=== PATIENT | male | born 1955 | race Caucasian/White ===

== ENCOUNTER 2018-01-12 21:35 | Inpatient (IN) | payer OTHER ==
[~2018-01-12] VITALS: Ht 180.3 cm; Wt 97.5 kg
[2018-01-12 21:40] VITALS: BP_SYST 144
[2018-01-12] MEDS ORDERED: NACL 0.9% 1,000 ML IV ONE (22:32)
[2018-01-12 22:57] LABS: BASOPHILS # (AUTO) 0.1 K/uL (0.0-0.2); BASOPHILS % (AUTO) 0.6 % (0.0-2.0); EOSINOPHILS # (AUTO) 0.3 K/uL (0.0-0.4); EOSINOPHILS % (AUTO) 1.5 % (0.0-4.0); HEMATOCRIT 40.5 % (36-54); HEMOGLOBIN 13.6 g/dL (14.0-18.0); LYMPHOCYTES # (AUTO) 1.8 K/uL (1.0-5.5); LYMPHOCYTES % (AUTO) 10.2 % (20.5-51.5); MEAN CORPUSCULAR HEMOGLOBIN 29 pg (27-31); MEAN CORPUSCULAR HGB CONC 33 % (32-36); MEAN CORPUSCULAR VOLUME 86 fL (79.0-98.0); MONOCYTES % (AUTO) 5.4 % (1.7-9.3); NEUTROPHILS # (AUTO) 14.7 K/uL (1.8-7.7); NEUTROPHILS % (AUTO) 82.3 % (40.0-70.0); PLATELET COUNT (AUTO) 190 K/uL (130-430); RED CELL DISTRIBUTION WIDTH 12.9 % (9.0-15.0); WHITE BLOOD COUNT (AUTO) 17.9 K/uL (4.8-10.8)
[2018-01-12 23:10] LABS: CALCIUM 8.6 mg/dL (8.4-11.0); CREATININE 0.84 mg/dL (0.55-1.30); POTASSIUM 3.9 mmol/L (3.5-5.1)
[2018-01-12 23:15] LABS: ALBUMIN 3.4 g/dL (3.4-4.8); TOTAL BILIRUBIN 1.2 mg/dL (0.0-1.0)
[2018-01-12] MEDS ORDERED: ACETAMINOPHEN 325 MG TABLET ONE (23:52)
[2018-01-13] MEDS ORDERED: ACETAMINOPHEN 325 MG TABLET PO ONE
[2018-01-13 00:02] LABS: BILIRUBIN,URINE NEGATIVE (NEGATIVE); BLOOD, URINE NEGATIVE (NEGATIVE); CLARITY/URINE CLOUDY (CLEAR); COLOR,URINE YELLOW (YELLOW); GLUCOSE,URINE NEGATIVE (NEGATIVE); KETONES,URINE NEGATIVE (NEGATIVE); LEUKOCYTE ESTERASE ,URINE 3+ (NEGATIVE); NITRITE, URINE NEGATIVE (NEGATIVE); PROTEIN URINE NEGATIVE (NEGATIVE); UROBILINOGEN,URINE 0.2 (0.2-1.0)
[2018-01-13 00:09] LABS: BACTERIA,URINE MODERATE /HPF (None Seen); RBC,URINE 0-3 /HPF (0-3); URINE AMORPHOUS URATE 2+ /HPF (None Seen); WBC,URINE 20-50 /HPF (0-3)
[2018-01-13] MEDS ORDERED: LEVOFLOXACIN 500 MG/D5W 100 ML IV ONE (00:15)
[2018-01-13] MEDS ORDERED: NACL 0.9% 1,000 ML IV ONE (00:28)
[2018-01-13] MEDS ORDERED: DIPHENHYDRAMINE INJ 50 MG/ML VIAL IVP ONE ×2 (00:30→17:00)
[2018-01-13] MEDS ORDERED: METOCLOPRAMIDE HCL 10 MG/2 ML VIAL IVP ONE (00:30)
[2018-01-13 00:31] LABS: PROTHROMBIN TIME 10.2 SECS (9.5-12.5)
[2018-01-13] MEDS ORDERED: PIPERACILLIN/TAZO 3.375 GM in NS 50 ML IV ONE (00:45)
[2018-01-13] MEDS ORDERED: MORP30TA PO (00:46)
[2018-01-13] MEDS ORDERED: FAMO20TA8 PO (00:46)
[2018-01-13] MEDS ORDERED: METO25TA3 PO (00:46)
[2018-01-13] MEDS ORDERED: MORP15TA PO (00:46)
[2018-01-13] MEDS ORDERED: ASPI325T2 PO (00:46)
[2018-01-13] MEDS ORDERED: LISI-600 PO (00:46)
[2018-01-13] MEDS ORDERED: DICY10CA59 PO (00:46)
[2018-01-13] MEDS ORDERED: CLOP75TA2 PO (00:46)
[2018-01-13] MEDS ORDERED: PIPERACILLIN/TAZOBACTAM 3.375 GM/VIAL (ZOSYN) IV ONE ×2 (00:47→06:11)
[2018-01-13] MEDS ORDERED: OSELTAMIVIR PHOSPHATE 75 MG CAPSULE PO ONE (01:30)
[2018-01-13] MEDS ORDERED: METOCLOPRAMIDE HCL 10 MG/2 ML VIAL IVP PRN (02:00)
[2018-01-13 02:30] VITALS: BP_SYST 117
[2018-01-13] MEDS: NACL 0.9% 1,000 ML IV SCH ×3 (02:46→23:20)
[2018-01-13 04:00] VITALS: BP_SYST 110
[2018-01-13] MEDS: ACETAMINOPHEN 325 MG TABLET PO PRN ×3 (04:04→18:31)
[2018-01-13] MEDS: PIPERACILLIN/TAZO 3.375/DEX-IS 50 ML IV SCH ×4 (06:00→23:19)
[2018-01-13] MEDS: LISINOPRIL 20 MG TABLET PO SCH (09:00)
[2018-01-13] MEDS ORDERED: LISINOPRIL 20 MG TABLET PO SCH (09:00)
[2018-01-13] MEDS ORDERED: ASPIRIN 325 MG TABLET PO SCH ×2 (09:00)
[2018-01-13] MEDS: CLOPIDOGREL BISULFATE 75 MG TABLET PO SCH (09:59)
[2018-01-13] MEDS: FAMOTIDINE 20 MG TABLET PO SCH (09:59)
[2018-01-13] MEDS: METOPROLOL SUCCINATE 25 MG TAB.SR.24H (TOPROL XL) PO SCH (10:00)
[2018-01-13] MEDS: MORPHINE SULFATE 30 MG Immediate Release TABLET PO PRN ×2 (10:07→18:31)
[2018-01-13] MEDS ORDERED: ASPIRIN 81 MG TAB.CHEW PO ONE (10:15)
[2018-01-13 12:00] VITALS: BP_SYST 103
[2018-01-13 16:00] VITALS: BP_SYST 120
[2018-01-13] MEDS ORDERED: TAMSULOSIN HCL 0.4 MG CAP PO ONE (16:15)
[2018-01-13] MEDS ORDERED: GENTAMICIN 120 mg/100 mL NS 100 ML IV SCH (17:00)
[2018-01-13 20:00] VITALS: BP_SYST 98
[2018-01-13] MEDS: TAMSULOSIN HCL 0.4 MG CAP PO SCH (20:23)
[2018-01-13 23:38] VITALS: BP_SYST 112
[2018-01-14] MEDS: DIPHENHYDRAMINE INJ 50 MG/ML VIAL IVP SCH ×4 (00:34→17:34)
[2018-01-14] MEDS: PIPERACILLIN/TAZO 3.375/DEX-IS 50 ML IV SCH ×3 (05:07→17:34)
[2018-01-14] MEDS: NACL 0.9% 1,000 ML IV SCH ×3 (05:07→21:00)
[2018-01-14] MEDS: ACETAMINOPHEN 325 MG TABLET PO PRN ×2 (05:14→17:35)
[2018-01-14 06:58] LABS: BASOPHILS % (AUTO) 0.2 % (0.0-2.0); EOSINOPHILS # (AUTO) 0.1 K/uL (0.0-0.4); EOSINOPHILS % (AUTO) 0.9 % (0.0-4.0); HEMOGLOBIN 11.6 g/dL (14.0-18.0); LYMPHOCYTES # (AUTO) 1.2 K/uL (1.0-5.5); LYMPHOCYTES % (AUTO) 9.7 % (20.5-51.5); MEAN CORPUSCULAR HEMOGLOBIN 29 pg (27-31); MEAN CORPUSCULAR HGB CONC 33 % (32-36); MEAN CORPUSCULAR VOLUME 87 fL (79.0-98.0); MONOCYTES # (AUTO) 0.8 K/uL (0.0-1.0); MONOCYTES % (AUTO) 6.5 % (1.7-9.3); NEUTROPHILS # (AUTO) 9.9 K/uL (1.8-7.7); PLATELET COUNT (AUTO) 144 K/uL (130-430); RED BLOOD CELL COUNT(AUTO) 4.03 MIL/uL (4.2-6.2)
[2018-01-14 07:23] LABS: ALBUMIN 2.4 g/dL (3.4-4.8); CALCIUM 7.9 mg/dL (8.4-11.0); CREATININE 0.98 mg/dL (0.55-1.30); POTASSIUM 3.2 mmol/L (3.5-5.1)
[2018-01-14 08:00] VITALS: BP_SYST 94
[2018-01-14] MEDS: LISINOPRIL 20 MG TABLET PO SCH (08:56)
[2018-01-14] MEDS: METOPROLOL SUCCINATE 25 MG TAB.SR.24H (TOPROL XL) PO SCH (08:57)
[2018-01-14] MEDS ORDERED: TAMSULOSIN HCL 0.4 MG CAP PO SCH (09:00)
[2018-01-14] MEDS: TAMSULOSIN HCL 0.4 MG CAP PO SCH ×2 (09:03→20:51)
[2018-01-14] MEDS: FAMOTIDINE 20 MG TABLET PO SCH (09:03)
[2018-01-14] MEDS: ASPIRIN 81 MG TAB.CHEW PO SCH (09:03)
[2018-01-14] MEDS: CLOPIDOGREL BISULFATE 75 MG TABLET PO SCH (09:03)
[2018-01-14] MEDS ORDERED: POTASSIUM CHLORIDE 20 MEQ TAB.PRT.SR PO ONE (10:00)
[2018-01-14 10:17] LABS: NEUTROPHILS % (AUTO) 82.7 % (40.0-70.0)
[2018-01-14] MEDS: MORPHINE SULFATE 30 MG Immediate Release TABLET PO PRN (12:27)
[2018-01-14 13:04] VITALS: BP_SYST 122
[2018-01-14 16:18] VITALS: BP_SYST 116
[2018-01-14 20:00] VITALS: BP_SYST 137
[2018-01-14] MEDS: POTASSIUM CHLORIDE 20 MEQ TAB.PRT.SR PO SCH (20:52)
[2018-01-14] MEDS: TOPIRAMATE 25 MG TABLET(TOPAMAX) PO SCH (20:57)
[2018-01-14 23:30] VITALS: BP_SYST 130
[2018-01-15] MEDS: DIPHENHYDRAMINE INJ 50 MG/ML VIAL IVP SCH ×4 (00:47→17:41)
[2018-01-15] MEDS: PIPERACILLIN/TAZO 3.375/DEX-IS 50 ML IV SCH ×3 (00:47→11:19)
[2018-01-15] MEDS: NACL 0.9% 1,000 ML IV SCH ×4 (00:48→20:40)
[2018-01-15 08:00] VITALS: BP_SYST 132
[2018-01-15] MEDS: FAMOTIDINE 20 MG TABLET PO SCH (09:00)
[2018-01-15] MEDS: CLOPIDOGREL BISULFATE 75 MG TABLET PO SCH (09:00)
[2018-01-15] MEDS: ASPIRIN 81 MG TAB.CHEW PO SCH (09:00)
[2018-01-15] MEDS: POTASSIUM CHLORIDE 20 MEQ TAB.PRT.SR PO SCH ×2 (09:00→21:28)
[2018-01-15] MEDS: TAMSULOSIN HCL 0.4 MG CAP PO SCH ×2 (09:00→21:28)
[2018-01-15] MEDS: METOPROLOL SUCCINATE 25 MG TAB.SR.24H (TOPROL XL) PO SCH (09:01)
[2018-01-15] MEDS: LOSARTAN POTASSIUM 25 MG TABLET PO SCH (09:02)
[2018-01-15] MEDS ORDERED: LOPERAMIDE HCL 2 MG CAPSULE PO ONE (09:15)
[2018-01-15] MEDS: MORPHINE SULFATE 30 MG Immediate Release TABLET PO PRN ×2 (09:57→17:53)
[2018-01-15 12:15] VITALS: BP_SYST 128
[2018-01-15 12:47] LABS: BASOPHILS % (AUTO) 0.4 % (0.0-2.0); EOSINOPHILS % (AUTO) 0.8 % (0.0-4.0); HEMATOCRIT 35.5 % (36-54); LYMPHOCYTES # (AUTO) 0.9 K/uL (1.0-5.5); LYMPHOCYTES % (AUTO) 20.4 % (20.5-51.5); MEAN CORPUSCULAR HEMOGLOBIN 29 pg (27-31); MEAN CORPUSCULAR HGB CONC 34 % (32-36); MEAN CORPUSCULAR VOLUME 86 fL (79.0-98.0); MONOCYTES # (AUTO) 0.5 K/uL (0.0-1.0); MONOCYTES % (AUTO) 10.6 % (1.7-9.3); NEUTROPHILS # (AUTO) 2.9 K/uL (1.8-7.7); NEUTROPHILS % (AUTO) 67.8 % (40.0-70.0); PLATELET COUNT (AUTO) 148 K/uL (130-430); RED BLOOD CELL COUNT(AUTO) 4.11 MIL/uL (4.2-6.2); RED CELL DISTRIBUTION WIDTH 12.7 % (9.0-15.0)
[2018-01-15 12:54] LABS: WHITE BLOOD COUNT (AUTO) 4.3 K/uL (4.8-10.8)
[2018-01-15 12:58] LABS: CALCIUM 8.1 mg/dL (8.4-11.0); CREATININE 0.88 mg/dL (0.55-1.30); POTASSIUM 3.7 mmol/L (3.5-5.1)
[2018-01-15] MEDS ORDERED: metroNIDAZOLE 500 MG TABLET PO ONE (14:30)
[2018-01-15] MEDS: LOPERAMIDE HCL 2 MG CAPSULE PO PRN (15:05)
[2018-01-15 15:22] VITALS: BP_SYST 112
[2018-01-15] MEDS: ERTAPENEM SODIUM 1 GM in NS 50 ML IV SCH (17:42)
[2018-01-15 20:00] VITALS: BP_SYST 142
[2018-01-15] MEDS: TOPIRAMATE 25 MG TABLET(TOPAMAX) PO SCH (21:28)
[2018-01-15] MEDS: metroNIDAZOLE 500 MG TABLET PO SCH (21:28)
[2018-01-15 23:44] VITALS: BP_SYST 131
[2018-01-16] MEDS: DIPHENHYDRAMINE INJ 50 MG/ML VIAL IVP SCH ×5 (00:46→23:39)
[2018-01-16] MEDS: NACL 0.9% 1,000 ML IV SCH ×4 (03:20→23:40)
[2018-01-16] MEDS: metroNIDAZOLE 500 MG TABLET PO SCH ×3 (06:47→21:54)
[2018-01-16 08:05] VITALS: BP_SYST 134
[2018-01-16] MEDS: TAMSULOSIN HCL 0.4 MG CAP PO SCH ×2 (08:22→20:26)
[2018-01-16] MEDS: POTASSIUM CHLORIDE 20 MEQ TAB.PRT.SR PO SCH ×2 (08:22→20:26)
[2018-01-16] MEDS: LOPERAMIDE HCL 2 MG CAPSULE PO PRN ×3 (08:23→20:27)
[2018-01-16] MEDS: FAMOTIDINE 20 MG TABLET PO SCH (08:23)
[2018-01-16] MEDS: CLOPIDOGREL BISULFATE 75 MG TABLET PO SCH (08:23)
[2018-01-16] MEDS: LOSARTAN POTASSIUM 25 MG TABLET PO SCH (08:24)
[2018-01-16] MEDS: MORPHINE SULFATE 30 MG Immediate Release TABLET PO PRN ×2 (08:24→22:10)
[2018-01-16] MEDS: METOPROLOL SUCCINATE 25 MG TAB.SR.24H (TOPROL XL) PO SCH (08:25)
[2018-01-16] MEDS: ASPIRIN 81 MG TAB.CHEW PO SCH (08:26)
[2018-01-16 12:01] VITALS: BP_SYST 114
[2018-01-16 16:02] VITALS: BP_SYST 125
[2018-01-16] MEDS: ERTAPENEM SODIUM 1 GM in NS 50 ML IV SCH (17:18)
[2018-01-16 20:00] VITALS: BP_SYST 138
[2018-01-16] MEDS: TOPIRAMATE 25 MG TABLET(TOPAMAX) PO SCH (20:26)
[2018-01-17 01:36] VITALS: BP_SYST 130
[2018-01-17] MEDS: DIPHENHYDRAMINE INJ 50 MG/ML VIAL IVP SCH ×2 (05:03→11:59)
[2018-01-17] MEDS: NACL 0.9% 1,000 ML IV SCH ×2 (05:03→11:58)
[2018-01-17] MEDS: metroNIDAZOLE 500 MG TABLET PO SCH ×2 (05:03→13:25)
[2018-01-17 07:18] LABS: BASOPHILS % (AUTO) 0.5 % (0.0-2.0); EOSINOPHILS # (AUTO) 0.4 K/uL (0.0-0.4); EOSINOPHILS % (AUTO) 6.6 % (0.0-4.0); HEMATOCRIT 36.9 % (36-54); HEMOGLOBIN 12.4 g/dL (14.0-18.0); LYMPHOCYTES # (AUTO) 1.9 K/uL (1.0-5.5); LYMPHOCYTES % (AUTO) 34.8 % (20.5-51.5); MEAN CORPUSCULAR HEMOGLOBIN 29 pg (27-31); MEAN CORPUSCULAR HGB CONC 34 % (32-36); MEAN CORPUSCULAR VOLUME 86 fL (79.0-98.0); MONOCYTES # (AUTO) 0.6 K/uL (0.0-1.0); MONOCYTES % (AUTO) 11.3 % (1.7-9.3); NEUTROPHILS # (AUTO) 2.7 K/uL (1.8-7.7); NEUTROPHILS % (AUTO) 46.8 % (40.0-70.0); PLATELET COUNT (AUTO) 172 K/uL (130-430); RED BLOOD CELL COUNT(AUTO) 4.28 MIL/uL (4.2-6.2); WHITE BLOOD COUNT (AUTO) 5.6 K/uL (4.8-10.8)
[2018-01-17 07:40] LABS: CALCIUM 8.6 mg/dL (8.4-11.0); CREATININE 0.63 mg/dL (0.55-1.30); POTASSIUM 3.6 mmol/L (3.5-5.1)
[2018-01-17 08:00] VITALS: BP_SYST 140
[2018-01-17] MEDS: ASPIRIN 81 MG TAB.CHEW PO SCH (08:34)
[2018-01-17] MEDS: TAMSULOSIN HCL 0.4 MG CAP PO SCH (08:34)
[2018-01-17] MEDS: POTASSIUM CHLORIDE 20 MEQ TAB.PRT.SR PO SCH (08:34)
[2018-01-17] MEDS: FAMOTIDINE 20 MG TABLET PO SCH (08:34)
[2018-01-17] MEDS: LOSARTAN POTASSIUM 25 MG TABLET PO SCH (08:35)
[2018-01-17] MEDS: CLOPIDOGREL BISULFATE 75 MG TABLET PO SCH (08:35)
[2018-01-17] MEDS: METOPROLOL SUCCINATE 25 MG TAB.SR.24H (TOPROL XL) PO SCH (08:36)
[2018-01-17] MEDS: MORPHINE SULFATE 30 MG Immediate Release TABLET PO PRN (08:43)
[2018-01-17 12:00] VITALS: BP_SYST 131
[2018-01-17 14:37] VITALS: BP_SYST 132
[2018-01-17] MEDS: LOPERAMIDE HCL 2 MG CAPSULE PO PRN (15:49)
[2018-01-17 16:30] VITALS: BP_SYST 132
[2018-01-17] MEDS: ERTAPENEM SODIUM 1 GM in NS 50 ML IV SCH (16:48)
== END 2018-01-17 17:45 | disposition home health service (06) | DRG 872 ==
LOC: SED 21:35 → STU 01-13 01:42 → SMU 01-14 14:05
PROVIDERS: ADMIT Internal Medicine; ATTEND Internal Medicine
DX: A41.9 Sepsis, unspecified organism (principal); K76.0 Fatty (change of) liver, not elsewhere classified; G89.4 Chronic pain syndrome; N39.0 Urinary tract infection, site not specified; I10 Essential (primary) hypertension; I25.10 Atherosclerotic heart disease of native coronary artery without angina pectoris; J20.9 Acute bronchitis, unspecified; K21.9 Gastro-esophageal reflux disease without esophagitis; N20.0 Calculus of kidney; R06.6 Hiccough; K82.8 Other specified diseases of gallbladder; M19.90 Unspecified osteoarthritis, unspecified site; B96.20 Unspecified Escherichia coli [E. coli] as the cause of diseases classified elsewhere; Z16.12 Extended spectrum beta lactamase (ESBL) resistance; K58.0 Irritable bowel syndrome with diarrhea; Z85.038 Personal history of other malignant neoplasm of large intestine; Z90.49 Acquired absence of other specified parts of digestive tract; Z95.1 Presence of aortocoronary bypass graft; Z95.5 Presence of coronary angioplasty implant and graft; I25.2 Old myocardial infarction; Z88.8 Allergy status to other drugs, medicaments and biological substances; Z79.899 Other long term (current) drug therapy; Z79.82 Long term (current) use of aspirin; Z97.8 Presence of other specified devices; Z90.79 Acquired absence of other genital organ(s)
CPT/HCPCS: 36415; 71045; 76870-TC; 80048; 80053; 81000-TC; 83605; 83690-TC; 85025; 85610-TC; 85730-TC; 86710; 87040-TC; 87086; 87186-TC; 96361; 96365; 96375; 97110-GP; 97116-GP; 97530-GP; 99285; G9035; J1200; J1335; J1580; J2274; J2543; J2765; J7030; J7050

== ENCOUNTER 2018-02-22 12:20 | Outpatient (CLI) | payer OTHER ==
[~2018-02-22 12:20] MED LIST: ASPI325T2 PO; CLOP75TA2 PO; DICY10CA59 PO; FAMO20TA8 PO; LISI-600 PO; METO25TA3 PO; MORP15TA PO; MORP30TA PO
[2018-02-22 12:50] LABS: BASOPHILS # (AUTO) 0.1 K/uL (0.0-0.2); BASOPHILS % (AUTO) 0.6 % (0.0-2.0); EOSINOPHILS # (AUTO) 0.5 K/uL (0.0-0.4); EOSINOPHILS % (AUTO) 5.6 % (0.0-4.0); HEMATOCRIT 44.8 % (36-54); HEMOGLOBIN 14.8 g/dL (14.0-18.0); LYMPHOCYTES # (AUTO) 3.2 K/uL (1.0-5.5); LYMPHOCYTES % (AUTO) 36.6 % (20.5-51.5); MEAN CORPUSCULAR HEMOGLOBIN 28 pg (27-31); MEAN CORPUSCULAR HGB CONC 33 % (32-36); MEAN CORPUSCULAR VOLUME 85 fL (79.0-98.0); MONOCYTES # (AUTO) 0.5 K/uL (0.0-1.0); MONOCYTES % (AUTO) 6.1 % (1.7-9.3); NEUTROPHILS # (AUTO) 4.5 K/uL (1.8-7.7); NEUTROPHILS % (AUTO) 51.1 % (40.0-70.0); PLATELET COUNT (AUTO) 214 K/uL (130-430); RED BLOOD CELL COUNT(AUTO) 5.24 MIL/uL (4.2-6.2); RED CELL DISTRIBUTION WIDTH 13.3 % (9.0-15.0); WHITE BLOOD COUNT (AUTO) 8.8 K/uL (4.8-10.8)
[2018-02-22 12:52] LABS: BILIRUBIN,URINE NEGATIVE (NEGATIVE); BLOOD, URINE NEGATIVE (NEGATIVE); CLARITY/URINE CLEAR (CLEAR); COLOR,URINE YELLOW (YELLOW); GLUCOSE,URINE NEGATIVE (NEGATIVE); KETONES,URINE NEGATIVE (NEGATIVE); LEUKOCYTE ESTERASE ,URINE NEGATIVE (NEGATIVE); NITRITE, URINE NEGATIVE (NEGATIVE); PH,URINE 5.5 (5.0-8.0); PROTEIN URINE NEGATIVE (NEGATIVE); UROBILINOGEN,URINE 0.2 (0.2-1.0)
[2018-02-22 13:14] LABS: ALBUMIN 3.9 g/dL (3.4-4.8); CALCIUM 9.2 mg/dL (8.4-11.0); CREATININE 1.02 mg/dL (0.55-1.30); POTASSIUM 3.7 mmol/L (3.5-5.1); THYROID STIMULATING HORMONE 1.49 uIu/mL (0.34-4.82); URIC ACID 6.1 mg/dL (2.4-7.0)
[2018-02-23 08:12] LABS: PROSTATE SPECIFIC AG 1.7 ng/mL (0.0-4.0)
== END 2018-02-22 20:00 | disposition home or self-care (01) ==
LOC: SRD 12:20
PROVIDERS: ATTEND Internal Medicine
DX: Z00.01 Encounter for general adult medical examination with abnormal findings (principal); I51.7 Cardiomegaly; M81.0 Age-related osteoporosis without current pathological fracture; I10 Essential (primary) hypertension; K21.9 Gastro-esophageal reflux disease without esophagitis; Z79.899 Other long term (current) drug therapy; Z79.82 Long term (current) use of aspirin; Z85.038 Personal history of other malignant neoplasm of large intestine
CPT/HCPCS: 36415; 71046-TC; 80053; 80061; 81003; 82306; 82607; 84153; 84443-TC; 84550-TC; 85025; 87086